=== PATIENT | male | born 1930 | race Caucasian/White ===

== ENCOUNTER 2017-01-12 16:49 | Emergency (ER) | payer MEDICARE ==
[2017-01-12 17:14] VITALS: TEMP 97.7
[2017-01-12] MEDS ORDERED: NITROGLYCERIN OINT 1 INCH/GM PACKET TOPICAL STA (17:33)
[2017-01-12] MEDS ORDERED: ASPIRIN 81 MG CHEW PO STA (17:33)
[2017-01-12 18:14] LABS: Basophils % (A) 0 %; CH 32.9; CHCM 35.1; Eosinophils # (A) 0.1 k/uL (0-0.7); Eosinophils % (A) 2 %; HCT 46.8 % (39.0-53.0); HDW 2.46; Luc # (Auto) 0.14; Luc % (Auto) 2; Lymphocytes # (A) 2.1 k/uL (1.0-4.8); Lymphocytes % (A) 30 %; MCH 32.1 pg (25.0-35.0); MCHC 34.1 g/dL (31.0-37.0); MCV 93.9 fL (80.0-100.0); Mean Platelet Volume 7.7; Monocytes # (A) 0.6 k/uL (0-1.0); Monocytes % (A) 8 %; Neutrophils # (A) 4.2 k/uL (1.3-7.7); Neutrophils % (A) 58 %; RBC 4.98 m/uL (4.30-5.90); RDW 13.5 % (11.5-15.5); WBC 7.2 k/uL (3.8-10.6); WBC (Perox) 6.84
--- NOTE | 2017-01-12 18:20 | XR ---
EXAMINATION TYPE: XR chest 2V DATE OF EXAM: 01/12/2017 COMPARISON: 05/09/2015 HISTORY: Right-sided chest pain TECHNIQUE: Frontal and lateral views of the chest are obtained. FINDINGS: Heart is normal. Lungs are clear. There is no heart failure. There is no pleural effusion. Thoracic aorta is atheromatous. There are chest leads. Bony thorax is intact. IMPRESSION: No active cardiac pulmonary disease. No change.
[2017-01-12 18:29] LABS: ALT 34 U/L (21-72); AST 23 U/L (17-59); Alkaline Phosphatase 71 U/L (38-126); Anion Gap 10 mmol/L; Blood Urea Nitrogen 15 mg/dL (9-20); Calcium 9.3 mg/dL (8.4-10.2); Carbon Dioxide 22 mmol/L (22-30); Chloride 105 mmol/L (98-107); Glucose 94 mg/dL (74-99); Magnesium 2.1 mg/dL (1.6-2.3); Non-African American GFR(MDRD) >60 (>60 ml/min/1.73 sqM); Potassium 4.3 mmol/L (3.5-5.1); Sodium 137 mmol/L (137-145); Total Bilirubin 1.4 mg/dL (0.2-1.3); Total Protein 7.2 g/dL (6.3-8.2)
[2017-01-12 18:30] LABS: Partial Thromboplastin Time 23.6 sec (22.0-30.0); Prothrombin Time 10.1 sec (9.0-12.0)
[2017-01-12 18:38] LABS: Creatine Kinase 83 U/L (55-170)
[2017-01-12 18:52] LABS: Creatine Kinase MB 0.8 ng/mL (0.0-2.4); Troponin I <0.012 ng/mL (0.000-0.034)
[2017-01-12 19:17] VITALS: BP 137/80; PULSE 64; RESP 18
--- NOTE | 2017-01-12 19:39 | ED ---
Chest Pain HPI - General Chief Complaint: Chest Pain Stated Complaint: chest pain,back pain Time Seen by Provider: 01/12/17 17:28 Source: patient Mode of arrival: wheelchair - History of Present Illness Initial Comments: This 86-year-old white male presents with son with the complaint of some bilateral lower back tightness. This is been a chronic problem for him. He states that he went to another and 2 days ago and was sitting in some bleachers and his back pain seemed to increase to a slight degree. The pain in his back seemed to radiate into his right lateral inferior ribs as well. He states that the pain would decrease when he took a deep breath. He denies any shortness of breath. He denies any leg pain or swelling. He states that there is no pain upon his evaluation in the emergency department. There is no history of previous cardiac or pulmonary disease. There is no history of DVT or PE. No other complaints or modifying factors. - Related Data Home Medications Medication Instructions Recorded Confirmed Ranitidine HCl [Zantac] 150 mg PO DAILY PRN 12/24/14 01/12/17 Aspirin EC [Ecotrin Low Dose] 81 mg PO QAM 01/12/17 01/12/17 Dicyclomine [Bentyl] 10 mg PO Q8H PRN 01/12/17 01/12/17 Ergocalciferol [Vitamin D2] 50,000 unit PO SA 01/12/17 01/12/17 Finasteride [Proscar] 5 mg PO DAILY 01/12/17 01/12/17 Lisinopril [Zestril] 10 mg PO QAM 01/12/17 01/12/17 Niacin 500 mg PO DAILY 01/12/17 01/12/17 Tamsulosin HCl [Flomax] 0.4 mg PO BID 01/12/17 01/12/17 Allergies Allergy/AdvReac Type Severity Reaction Status Date / Time Penicillins Allergy Rash/Hives Verified 01/12/17 18:31 codeine AdvReac Nausea & Verified 01/12/17 18:31 Vomiting Review of Systems ROS Statement: Those systems with pertinent positive or pertinent negative responses have been documented in the HPI. ROS Other: All systems not noted in ROS Statement are negative. Past Medical History Past Medical History: GERD/Reflux, Prostate Disorder, Skin Disorder Additional Past Medical History / Comment(s): IBS, chronic constipation, hx psoriasis History of Any Multi-Drug Resistant Organisms: None Reported Past Surgical History: Appendectomy, Cholecystectomy, Joint Replacement Additional Past Surgical History / Comment(s): piyush knee replacements, rt cataract Past Anesthesia/Blood Transfusion Reactions: No Reported Reaction Past Psychological History: No Psychological Hx Reported Smoking Status: Never smoker Past Alcohol Use History: None Reported Past Drug Use History: None Reported - Past Family History Mother Family Medical History: No Reported History General Exam - General Exam Comments Initial Comments: GENERAL: The patient is well nourished and well hydrated. VITAL SIGNS: Heart rate, blood pressure, respiratory rate reviewed as recorded in nurse's notes. EYES: Pupils are round and reactive. Extraocular movements are intact. No conjunctival / lid redness or swelling. ENT: No external evidence of injury, swelling, or ecchymosis. Airway is patent. Throat is clear. NECK: Nontender. No swelling or evidence of injury. No subcutaneous emphysema. Trachea is midline. No thyroid mass. HEART: Regular rate and rhythm. Good peripheral pulses. LUNGS/CHEST: Breath sounds clear and equal bilaterally. No rales, rhonchi, or wheezes. No ecchymosis, subcutaneous emphysema, or tenderness. ABDOMEN: Abdomen soft without tenderness. No palpable masses or organomegaly. No peritoneal signs. No abdominal wall swelling or ecchymosis. EXTREMITIES: No extremity tenderness. Normal muscle tone and function. No thoracolumbar tenderness. NEUROLOGIC: Sensation is grossly intact. Cranial nerve exam reveals face is symmetrical, tongue is midline, speech is clear. SKIN: No abrasions or ecchymosis is noted. No induration or masses noted. PSYCHIATRIC: Alert and oriented. Appropriate behavior and judgment. Course Vital Signs 01/12/17 01/12/17 17:06 19:16 Temperature 97.7 F Pulse Rate 74 64 Respiratory 19 18 Rate Blood Pressure 144/86 137/80 O2 Sat by Pulse 97 98 Oximetry Chest Pain MDM - MDM The patient was seen and examined. All diagnostics were reviewed. An EKG was done which shows a normal sinus rhythm with occasional immature ventricular complex. There is no acute ST or T wave changes noted. The MD interval is 206 , the QRS duration is 86, and the QTc interval is 439. The patient's checks x- ray did not show any acute processes. The laboratory including the cardiac enzymes and d-dimer are all essentially within normal limits. He did not have any pain upon evaluation and it did not recur. He appears quite well initially and on recheck. His pain seems to be very atypical for any cardiac disease but he has not had a stress test in many years. He is offered admission to the hospital for further Cardiologic workup. This is offered on several occasions but he refuses. He states that he would prefer to follow-up with his primary physician and have this scheduled. Return parameters are discussed. Risks and benefits of not being admitted and not having a cardiac workup were discussed in detail and he leaves in no distress. He does verbalize that he will follow- up with Dr. Leyva very shortly for evaluation of possible stress test. Disposition Clinical Impression: Atypical chest pain, Chronic back pain Disposition: HOME SELF-CARE Condition: Good Instructions: Chest Pain (ED), Chronic Back Pain (ED) Referrals: Deanne Leyva MD [Primary Care Provider] - 1-2 days Time of Disposition: 19:39
== END 2017-01-12 19:55 | disposition home or self-care (01) ==
LOC: EC 16:49
DX: G89.29 Other chronic pain (principal); M54.5 Low back pain; R07.89 Other chest pain; I49.3 Ventricular premature depolarization; N42.9 Disorder of prostate, unspecified; Z79.82 Long term (current) use of aspirin; Z79.899 Other long term (current) drug therapy; Z88.0 Allergy status to penicillin; Z88.5 Allergy status to narcotic agent
CPT/HCPCS: 36415; 71020; 80053; 82550; 82553; 83735; 84484; 85025; 85379; 85610; 85730; 93005; 99285

== ENCOUNTER → 2017-01-23 | Outpatient (CLI) | payer MEDICARE ==
--- NOTE | 2017-01-23 11:43 | P.STRESS ---
- Stress Test Note Stress Test Results/Findings: Exam Performed: NM stress cardiolite complete Exam Date: 01/23/17 Reason for Exam: CP Height: 5 ft 9 in Weight: 90.265 kg Protocol: VICKI CARDIOLITE Stage: I Duration of Exercise: 2:41 Resting Heart Rate: 78 Resting Blood Pressure: 146/85 Maximum Achieved Heart Rate: 141 Maximum Achieved Blood Pressure: 154/41 85% PMHR: 114 100% PMHR: 134 METS: 1.0 Technologist Comment: Stress Test Results/Findings: This is a 86-year-old gentleman being evaluated for symptoms of chest pain. Patient has hypertension and hypercholesterolemia. Baseline EKG showed sinus rhythm with normal QRS duration. Occasional PVCs were noted. Blood pressure at rest is 146/85 pulse rate of 78. Patient walked on the Vicki protocol for 2 minutes and 41 seconds achieving a maximal 141 with a blood pressure 130/52. EKGs taken during and after the exercise did not reveal any changes to suggest ischemia. Patient continued to have occasional PVCs. Patient did not experience any chest pain. Final impression: #1. Limited exercise capacity #2 negative stress test #3 report on the nuclear images to begin by the radiologist
--- NOTE | 2017-01-23 13:36 | NM ---
"EXAMINATION TYPE: NM stress cardiolite complete DATE OF EXAM: 01/23/2017 COMPARISON: 07/02/2009 HISTORY: Chest pain TECHNIQUE: After the intravenous administration of 10.5 mCi Tc 99m Sestamibi - Rest images obtained 65 minutes post injection. The patient exercised using a VICKI protocol and 1 minute prior to peak exercise was injected with 29.1 mCi Tc 99m Sestamibi - Stress images obtained 45 minutes post injecti on. FINDINGS: Targeted heart rate was achieved during performance of the study. Review of stress and rest SPECT yehuda ges demonstrates no reversible perfusion defect involving the inferior wall the myocardium.. Gated a nalysis shows an estimated left ventricular ejection fraction of 56 %. IMPRESSION: Correlate for stress-induced reversible ischemia inferior wall myocardium. A Yellow message has been communicated to Deanne Leyva MD via the [employer] | Critical Result s ystem on 01/23/2017 1:34 PM, Message ID [id number]."
== END ==
LOC: RADNMMAIN 08:35
PROVIDERS: ATTEND Internal Medicine
DX: R07.89 Other chest pain (principal)
CPT/HCPCS: 93017; 78452; A9500

== ENCOUNTER 2017-09-06 10:28 | Observation (INO) | payer MEDICARE ==
[2017-09-06] MEDS ORDERED: SODIUM CHLORIDE 0.9% 1,000 ML IV STA (11:04)
[2017-09-06] MEDS ORDERED: SODIUM CHLORIDE 0.9% 500 ML IV STA (11:04)
[2017-09-06 11:30] LABS: Basophils % (A) 0 %; Eosinophils # (A) 0.1 k/uL (0-0.7); Eosinophils % (A) 2 %; HCT 42.7 % (39.0-53.0); HGB 14.5 gm/dL (13.0-17.5); Lymphocytes # (A) 1.8 k/uL (1.0-4.8); Lymphocytes % (A) 27 %; MCV 91.4 fL (80.0-100.0); Mean Platelet Volume 7.4; Monocytes # (A) 0.5 k/uL (0-1.0); Monocytes % (A) 7 %; Neutrophils # (A) 4.2 k/uL (1.3-7.7); Neutrophils % (A) 63 %; Platelet Count 233 k/uL (150-450); RBC 4.67 m/uL (4.30-5.90); RDW 12.6 % (11.5-15.5); WBC 6.8 k/uL (3.8-10.6)
[2017-09-06 11:33] LABS: Albumin 3.8 g/dL (3.5-5.0); Calcium 9.5 mg/dL (8.4-10.2); Magnesium 2.1 mg/dL (1.6-2.3); Potassium 4.3 mmol/L (3.5-5.1); Total Bilirubin 1.8 mg/dL (0.2-1.3); Total Protein 6.5 g/dL (6.3-8.2)
--- NOTE | 2017-09-06 11:42 | XR ---
EXAMINATION TYPE: XR chest 2V DATE OF EXAM: 09/06/2017 COMPARISON: Prior chest x-ray 01/12/2017 HISTORY: Chest pain TECHNIQUE: Frontal and lateral views of the chest are obtained. FINDINGS: There are overlying cardiac leads. Patient is rotated. No evident airspace disease, pneumo thorax, or pleural effusion. Cardiac mediastinal silhouette, pulmonary vascularity and radha are stabl e. Prominent lung volumes suggest underlying COPD. IMPRESSION: No acute cardiopulmonary process.
[2017-09-06 11:50] LABS: INR 1.1 (<1.2); Partial Thromboplastin Time 23.6 sec (22.0-30.0); Prothrombin Time 10.4 sec (9.0-12.0)
[2017-09-06 11:52] LABS: Creatine Kinase 52 U/L (55-170)
--- NOTE | 2017-09-06 11:52 | ED ---
General Adult HPI - General Chief complaint: Chest Pain Stated complaint: Jaw Pain/Chest Tightness Time Seen by Provider: 09/06/17 10:48 Source: patient, RN notes reviewed, old records reviewed Mode of arrival: ambulatory Limitations: no limitations - History of Present Illness Initial comments: This patient's an 87-year-old male with cardiac history presents emergency department today with intermittent left-sided jaw pain and ear pain. He reports he size primary care provider and they started him on antibiotics for an ear infection. He states that he has no drainage from his ear and denies any decreased hearing. He reports he is concerned because this seems to keep reoccurring despite taking his antibiotics. Patient relates that he's had intermittent chest pain, denies shortness of breath this time. He also reports he has a history of IBS and wonders if his IBS is acting up causing the symptoms. Patient states that he has had no blood in his stools or any significant changes in his bowel movements as of lately. No vomiting. He occasionally does feel nauseated. He reports that he is no lightheadedness or dizziness. Patient had a stent placed in the RCA on 02/13/2017. is maintained on clopidogrel, and takes atorvastatin. He did take his medications today. - Related Data Home Medications Medication Instructions Recorded Confirmed Ranitidine HCl [Zantac] 150 mg PO DAILY PRN 12/24/14 09/06/17 Aspirin EC [Ecotrin Low Dose] 81 mg PO QAM 01/12/17 09/06/17 Dicyclomine [Bentyl] 10 mg PO Q8H PRN 01/12/17 09/06/17 Finasteride [Proscar] 5 mg PO DAILY 01/12/17 09/06/17 Tamsulosin HCl [Flomax] 0.4 mg PO BID 01/12/17 09/06/17 Lubiprostone [Amitiza] 24 mcg PO DAILY PRN 02/06/17 09/06/17 Atorvastatin [Lipitor] 20 mg PO HS 09/06/17 09/06/17 Clindamycin HCl [Cleocin] 150 mg PO TID 09/06/17 09/06/17 Lisinopril [Zestril] 5 mg PO DAILY 09/06/17 09/06/17 Previous Rx's Medication Instructions Recorded Clopidogrel [Plavix] 75 mg PO DAILY #90 tab 02/14/17 Metoprolol Tartrate [Lopressor] 25 mg PO BID #180 tab 02/14/17 Nitroglycerin Sl Tabs [Nitrostat] 0.4 mg SUBLINGUAL Q5M PRN #25 tab 02/14/17 Allergies Allergy/AdvReac Type Severity Reaction Status Date / Time Penicillins Allergy Rash/Hives Verified 09/06/17 10:50 codeine AdvReac Nausea & Verified 09/06/17 10:50 Vomiting Review of Systems ROS Statement: Those systems with pertinent positive or pertinent negative responses have been documented in the HPI. ROS Other: All systems not noted in ROS Statement are negative. Past Medical History Past Medical History: GERD/Reflux, Hyperlipidemia, Hypertension, Prostate Disorder, Skin Disorder Additional Past Medical History / Comment(s): IBS, chronic constipation, hx psoriasis History of Any Multi-Drug Resistant Organisms: None Reported Past Surgical History: Appendectomy, Cholecystectomy, Heart Catheterization With Stent, Joint Replacement Additional Past Surgical History / Comment(s): piyush knee replacements, rt cataract Past Anesthesia/Blood Transfusion Reactions: No Reported Reaction Past Psychological History: No Psychological Hx Reported Smoking Status: Never smoker Past Alcohol Use History: None Reported Past Drug Use History: None Reported - Past Family History Mother Family Medical History: No Reported History General Exam - General Exam Comments Initial Comments: Pleasant 87-year-old male. No distress. Limitations: no limitations General appearance: alert, in no apparent distress Head exam: Present: atraumatic, normocephalic, normal inspection Eye exam: Present: normal appearance, PERRL, EOMI. Absent: scleral icterus, conjunctival injection, periorbital swelling ENT exam: Present: normal exam, mucous membranes moist, TM's normal bilaterally , normal external ear exam Neck exam: Present: normal inspection. Absent: tenderness, meningismus, lymphadenopathy Respiratory exam: Present: normal lung sounds bilaterally. Absent: respiratory distress, wheezes, rales, rhonchi, stridor Cardiovascular Exam: Present: regular rate, normal rhythm, normal heart sounds. Absent: systolic murmur, diastolic murmur, rubs, gallop, clicks GI/Abdominal exam: Present: soft, normal bowel sounds. Absent: distended, tenderness, guarding, rebound, rigid Extremities exam: Present: normal inspection, full ROM, normal capillary refill. Absent: tenderness, pedal edema, joint swelling, calf tenderness Back exam: Present: normal inspection Neurological exam: Present: alert, oriented X3, CN II-XII intact Course Vital Signs 09/06/17 09/06/17 09/06/17 10:32 12:21 13:24 Temperature 97.4 F L Pulse Rate 63 91 65 Respiratory 18 18 18 Rate Blood Pressure 172/79 147/64 172/84 O2 Sat by Pulse 98 98 96 Oximetry EKG Findings - EKG Comments: EKG Findings:: EKG performed at 1044 shows sinus rhythm with first-degree AV block. Inferior infarct age undetermined. Abnormal EKG noted. Ventricular rate of 60 bpm. RI interval 234 ms. QRS duration 80 ms. QT QTC 396 ms. Medical Decision Making - Medical Decision Making 87-year-old male presents emergency Department with intermittent chest pain and left jaw pain lip pain. He reports that he's had history of GERD RCA stent in January 2017. At this time patient's cardiac was reviewed and negative for any abnormality's. EKG shows no acute changes. I reviewed patient's age and description of symptoms we will keep the patient for observation for repeat cardiac enzymes. Patient family informed of this. They agreed to the admission. Case discussed with Dr. Merrill who discussed the case with Dr. Leyva. [place] the patient and repeat cardiac enzyme. - Lab Data Result diagrams: 09/06/17 11:08 09/06/17 11:08 Lab Results 09/06/17 09/06/17 09/06/17 Range/Units 11:08 11:08 11:08 WBC 6.8 (3.8-10.6) k/uL RBC 4.67 (4.30-5.90) m/uL Hgb 14.5 (13.0-17.5) gm/dL Hct 42.7 (39.0-53.0) % MCV 91.4 (80.0-100.0) fL MCH 31.0 (25.0-35.0) pg MCHC 34.0 (31.0-37.0) g/dL RDW 12.6 (11.5-15.5) % Plt Count 233 (150-450) k/uL Neutrophils % 63 % Lymphocytes % 27 % Monocytes % 7 % Eosinophils % 2 % Basophils % 0 % Neutrophils # 4.2 (1.3-7.7) k/uL Lymphocytes # 1.8 (1.0-4.8) k/uL Monocytes # 0.5 (0-1.0) k/uL Eosinophils # 0.1 (0-0.7) k/uL Basophils # 0.0 (0-0.2) k/uL PT (9.0-12.0) sec INR (<1.2) APTT (22.0-30.0) sec Sodium 138 (137-145) mmol/L Potassium 4.3 (3.5-5.1) mmol/L Chloride 103 (98-107) mmol/L Carbon Dioxide 25 (22-30) mmol/L Anion Gap 10 mmol/L BUN 14 (9-20) mg/dL Creatinine 0.92 (0.66-1.25) mg/dL Est GFR (CKD-EPI)AfAm 86 (>60 ml/min/1.73 sqM) Est GFR (CKD-EPI)NonAf 75 (>60 ml/min/1.73 sqM) Glucose 102 H (74-99) mg/dL Calcium 9.5 (8.4-10.2) mg/dL Magnesium 2.1 (1.6-2.3) mg/dL Total Bilirubin 1.8 H (0.2-1.3) mg/dL AST 23 (17-59) U/L ALT 28 (21-72) U/L Alkaline Phosphatase 63 (38-126) U/L Total Creatine Kinase 52 L (55-170) U/L CK-MB (CK-2) 0.4 (0.0-2.4) ng/mL CK-MB (CK-2) Rel Index 0.8 Troponin I <0.012 (0.000-0.034) ng/mL NT-Pro-B Natriuret Pep pg/mL Total Protein 6.5 (6.3-8.2) g/dL Albumin 3.8 (3.5-5.0) g/dL Amylase 38 (30-110) U/L Lipase 65 (23-300) U/L 09/06/17 09/06/17 Range/Units 11:08 11:08 WBC (3.8-10.6) k/uL RBC (4.30-5.90) m/uL Hgb (13.0-17.5) gm/dL Hct (39.0-53.0) % MCV (80.0-100.0) fL MCH (25.0-35.0) pg MCHC (31.0-37.0) g/dL RDW (11.5-15.5) % Plt Count (150-450) k/uL Neutrophils % % Lymphocytes % % Monocytes % % Eosinophils % % Basophils % % Neutrophils # (1.3-7.7) k/uL Lymphocytes # (1.0-4.8) k/uL Monocytes # (0-1.0) k/uL Eosinophils # (0-0.7) k/uL Basophils # (0-0.2) k/uL PT 10.4 (9.0-12.0) sec INR 1.1 (<1.2) APTT 23.6 (22.0-30.0) sec Sodium (137-145) mmol/L Potassium (3.5-5.1) mmol/L Chloride (98-107) mmol/L Carbon Dioxide (22-30) mmol/L Anion Gap mmol/L BUN (9-20) mg/dL Creatinine (0.66-1.25) mg/dL Est GFR (CKD-EPI)AfAm (>60 ml/min/1.73 sqM) Est GFR (CKD-EPI)NonAf (>60 ml/min/1.73 sqM) Glucose (74-99) mg/dL Calcium (8.4-10.2) mg/dL Magnesium (1.6-2.3) mg/dL Total Bilirubin (0.2-1.3) mg/dL AST (17-59) U/L ALT (21-72) U/L Alkaline Phosphatase (38-126) U/L Total Creatine Kinase (55-170) U/L CK-MB (CK-2) (0.0-2.4) ng/mL CK-MB (CK-2) Rel Index Troponin I (0.000-0.034) ng/mL NT-Pro-B Natriuret Pep 53 pg/mL Total Protein (6.3-8.2) g/dL Albumin (3.5-5.0) g/dL Amylase (30-110) U/L Lipase (23-300) U/L - Radiology Data Radiology results: report reviewed Chest x-rays reviewed and negative for any acute process. Disposition Clinical Impression: Intermittent chest pain Disposition: ADMITTED IP TO THIS HOSP Condition: Stable Instructions: Chest Pain (ED) Referrals: Deanne Leyva MD [Primary Care Provider] - 1-2 days Time of Disposition: 13:30
[2017-09-06 12:04] LABS: Creatine Kinase MB 0.4 ng/mL (0.0-2.4); Troponin I <0.012 ng/mL (0.000-0.034)
[2017-09-06] MEDS ORDERED: NALOXONE 0.4 MG/ML 1 ML VIAL IV PRN (13:31)
[2017-09-06] MEDS ORDERED: IBUPROFEN 400 MG TAB PO PRN (13:31)
[2017-09-06] MEDS ORDERED: Acetaminophen-Codeine 300-30mg TAB PO PRN (13:31)
[2017-09-06] MEDS ORDERED: ONDANSETRON 4 MG/2 ML VIAL IVP PRN (13:31)
[2017-09-06] MEDS ORDERED: ACETAMINOPHEN TAB 325 MG TAB PO PRN (13:31)
[2017-09-06] MEDS ORDERED: SODIUM CHLORIDE 0.9% 1,000 ML IV SCH (13:45)
[2017-09-06] MEDS ORDERED: ASPIRIN 325 MG TAB PO STA (13:50)
[2017-09-06] MEDS ORDERED: AMITIZA 24 MCG PO PRN (17:11)
[2017-09-06] MEDS ORDERED: FAMOTIDINE 20 MG TAB PO PRN (17:11)
[2017-09-06] MEDS ORDERED: DICYCLOMINE 10 MG CAP PO PRN (17:11)
[2017-09-06] MEDS ORDERED: NITROGLYCERIN SL TABS 0.4 MG TAB SUBLINGUAL PRN (17:11)
--- NOTE | 2017-09-06 17:11 | P.HPIM ---
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 Patient has a known history of coronary artery disease he had a stress test which was abnormal in January 2017 subsequently he had cardiac catheterization with angioplasty and stent placement by Dr. Snlel, he did not have any cardiac symptoms since then. Patient started having intermittent episodes of jaw pain and chest pain less than 24 hours ago he decided to come to emergency room this morning, he denies any fever or chills he denies pain in any of his teeth he feels normal between episodes of pain there is no headache no dizziness no diaphoresis no shortness of breath no cough no nausea or vomiting no abdominal pain and no urinary symptoms. 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 History of Any Multi-Drug Resistant Organisms: None Reported Past Surgical History: Appendectomy, Cholecystectomy, Heart Catheterization With Stent, Joint Replacement Additional Past Surgical History / Comment(s): 02/13/17 PCI with stent RCA, piyush knee replacements, colonoscopies, rt cataract Past Anesthesia/Blood Transfusion Reactions: No Reported Reaction Date of Last Stent Placement:: 02/13/17 Smoking Status: Never smoker - Past Family History Father Family Medical History: Coronary Artery Disease (CAD), Myocardial Infarction (ME ) Additional Family Medical History / Comment(s): Father of a ME at the age of 68yrs. Mother Family Medical History: Coronary Artery Disease (CAD), Myocardial Infarction (ME ) Additional Family Medical History / Comment(s): Mother of a ME at the age of 91 yrs. Medications and Allergies Home Medications Medication Instructions Recorded Confirmed Type Ranitidine HCl [Zantac] 150 mg PO DAILY PRN 12/24/14 09/06/17 History Aspirin EC [Ecotrin Low Dose] 81 mg PO QAM 01/12/17 09/06/17 History Dicyclomine [Bentyl] 10 mg PO Q8H PRN 01/12/17 09/06/17 History Finasteride [Proscar] 5 mg PO DAILY 01/12/17 09/06/17 History Tamsulosin HCl [Flomax] 0.4 mg PO BID 01/12/17 09/06/17 History Lubiprostone [Amitiza] 24 mcg PO DAILY PRN 02/06/17 09/06/17 History Clopidogrel [Plavix] 75 mg PO DAILY #90 tab 02/14/17 09/06/17 Rx Metoprolol Tartrate [Lopressor] 25 mg PO BID #180 tab 02/14/17 09/06/17 Rx Nitroglycerin Sl Tabs [Nitrostat] 0.4 mg SUBLINGUAL Q5M PRN #25 tab 02/14/1704/15 Rx Atorvastatin [Lipitor] 20 mg PO HS 09/06/17 09/06/17 History Clindamycin HCl [Cleocin] 150 mg PO TID 09/06/17 09/06/17 History Lisinopril [Zestril] 5 mg PO DAILY 09/06/17 09/06/17 History Allergies Allergy/AdvReac Type Severity Reaction Status Date / Time Penicillins Allergy Rash/Hives Verified 09/06/17 10:50 codeine AdvReac Nausea & Verified 09/06/17 10:50 Vomiting Physical Exam Vitals: Vital Signs Temp Pulse Resp BP Pulse Ox 09/06/17 15:55 83 18 127/68 09/06/17 13:24 65 18 172/84 96 09/06/17 12:21 91 18 147/64 98 09/06/17 10:32 97.4 F L 63 18 172/79 98 Intake and Output 09/06/17 09/06/17 09/06/17 06:59 14:59 22:59 Other: Weight 90.265 kg In general patient is alert and oriented 3 in no apparent distress HEENT head normocephalic and atraumatic Neck is supple no JVD no goiter no lymphadenopathy Chest exam reveals a few scattered crackles bilaterally no wheezing Cardiac exam reveals regular heart sounds S1 and S2 no gallops no murmurs Abdomen is soft nontender no organomegaly was normal bowel sounds Extremity exam reveals no edema no cyanosis Results CBC & Chem 7: 09/06/17 11:08 09/06/17 11:08 Labs: Abnormal Lab Results - Last 24 Hours (Table) 09/06/17 09/06/17 Range/Units 11:08 11:08 Glucose 102 H (74-99) mg/dL Total Bilirubin 1.8 H (0.2-1.3) mg/dL Total Creatine Kinase 52 L (55-170) U/L Thrombosis Risk Factor Assmnt - Choose All That Apply Any of the Below Risk Factors Present?: Yes Each Factor Represents 1 point: Hx of IBD, Obesity (BMI >25) Other Risk Factors: Yes Each Risk Factor Represents 3 Points: Age 75 years or older Other congenital or acquired thrombophilia - If yes, enter type in comment: No Thrombosis Risk Factor Assessment Total Risk Factor Score: 5 Thrombosis Risk Factor Assessment Level: High Risk Assessment and Plan Assessment: #1 intermittent episodes of chest pain and jaw pain #2 underlying history of coronary artery disease with angioplasty and stent placement in January 2017 #3 underlying history of hypertension #4 underlying history of hyperlipidemia maintained on Lipitor #5 underlying history of benign prostatic hypertrophy At this time patient was seen and examined medication reviewed and reordered lab EKG and chest x-ray were reviewed Continue to monitor for 24 hours with check 3 sets of cardiac enzymes cardiology consultation has been requested will follow closely
[2017-09-06 18:04] LABS: Creatine Kinase 52 U/L (55-170)
[2017-09-06 18:16] LABS: Creatine Kinase MB 0.4 ng/mL (0.0-2.4); Troponin I <0.012 ng/mL (0.000-0.034)
[2017-09-06] MEDS ORDERED: ATORVASTATIN 20 MG TAB PO SCH (21:00)
[2017-09-06] MEDS: TAMSULOSIN 0.4 MG CAP.ER.24H PO SCH (21:48)
[2017-09-06] MEDS: METOPROLOL TARTRATE 25 MG TAB PO SCH (21:48)
[2017-09-06] MEDS ORDERED: FINASTERIDE 5 MG TAB PO SCH (22:00)
[2017-09-07 00:16] LABS: Creatine Kinase 64 U/L (55-170)
[2017-09-07 00:30] LABS: Creatine Kinase MB 0.6 ng/mL (0.0-2.4); Troponin I <0.012 ng/mL (0.000-0.034)
[2017-09-07 06:42] LABS: Basophils % (A) 0 %; Eosinophils # (A) 0.1 k/uL (0-0.7); Eosinophils % (A) 2 %; HCT 40.5 % (39.0-53.0); HGB 14.1 gm/dL (13.0-17.5); Lymphocytes # (A) 2.3 k/uL (1.0-4.8); Lymphocytes % (A) 32 %; MCH 31.3 pg (25.0-35.0); MCHC 34.8 g/dL (31.0-37.0); MCV 89.9 fL (80.0-100.0); Mean Platelet Volume 6.9; Monocytes # (A) 0.6 k/uL (0-1.0); Monocytes % (A) 8 %; Neutrophils # (A) 4.1 k/uL (1.3-7.7); Neutrophils % (A) 57 %; Platelet Count 226 k/uL (150-450); RDW 12.5 % (11.5-15.5); WBC 7.3 k/uL (3.8-10.6)
[2017-09-07 07:11] LABS: Albumin 3.5 g/dL (3.5-5.0); Calcium 9.3 mg/dL (8.4-10.2); Potassium 4.4 mmol/L (3.5-5.1); Total Bilirubin 2.4 mg/dL (0.2-1.3); Total Protein 6.2 g/dL (6.3-8.2)
[2017-09-07 08:20] VITALS: RESP 18
[2017-09-07] MEDS ORDERED: ASPIRIN 81 MG PO SCH (09:00)
[2017-09-07] MEDS ORDERED: PANTOPRAZOLE 40 MG/10 ML VIAL IV SCH (09:00)
[2017-09-07] MEDS ORDERED: FINASTERIDE 5 MG TAB PO SCH (09:00)
[2017-09-07] MEDS ORDERED: LISINOPRIL 5 MG TAB PO SCH (09:00)
[2017-09-07] MEDS ORDERED: CLOPIDOGREL 75 MG TAB PO SCH (09:00)
[2017-09-07] MEDS: METOPROLOL TARTRATE 25 MG TAB PO SCH (11:11)
[2017-09-07] MEDS: TAMSULOSIN 0.4 MG CAP.ER.24H PO SCH (11:11)
[2017-09-07 12:05] VITALS: BP 146/88; PULSE 78; TEMP 97.5
--- NOTE | 2017-09-07 13:03 | P.CRDCN ---
History of Present Illness Consult date: 09/07/17 History of present illness: Mr. Álvarez is a pleasant 87-year-old male past medical history significant for coronary artery disease with recent stenting 01/2017, dyslipidemia, hypertension, gastroesophageal reflux disease and diverticulitis. He follows with Dr. Snell in the office. We have been asked to see him in consultation for symptoms of chest pain. He states yesterday he started feeling some pain in his jaw. The pain was constant and persistent so he became alarmed that there may be some cardiac involvement. He denies every having chest pain, shortness of breath, dizziness, palpitations, nausea, vomiting or diaphoresis. He realized later in the evening that the pain was made worse when he was eating , chewing and pressing on his left upper gum line. He does have poor dentition on exam. Telemetry tracings have been unremarkable and EKG shows no signs of ischemia. EKG is sinus mechanism with first degree AV block and non-specific ST abnormalities. Chest x-ray is negative for acute cardiopulmonary process. Laboratory data reviewed, hemoglobin 14.1, platelets 226, sodium 139, potassium 4.4, magnesium 2.1, cardiac enzymes negative 3. Current cardiac medications include atorvastatin 20 mg daily, Lopressor 25 mg twice a day, lisinopril 5 mg daily, clopidogrel 75 mg daily and aspirin 81 mg daily. Most recent cardiac catheterization performed January 2017 HEENT revealed disease in the ostial RCA which was stented at that time he also had mild disease in the LAD 20-30%. Review of Systems At the time my exam: CONSTITUTIONAL: Denies fever. Denies chills. EYES: Denies blurred vision. Denies vision changes. Denies eye pain. EARS, NOSE, MOUTH & THROAT: Denies headache. Denies sore throat. Denies ear pain. Complains of intermittent dental pain CARDIOVASCULAR: Denies chest pain. Denies shortness of breath. Denies orthopnea. Denies PND. Denies palpitations. RESPIRATORY: Denies cough. GASTROINTESTINAL: Denies abdominal pain. Denies diarrhea. Denies constipation. Denies nausea. Denies vomiting. MUSCULOSKELETAL: Denies myalgias. INTEGUMENTARY: Denies pruitis. Denies rash. NEUROLOGIC: Denies numbness. Denies tingling. Denies weakness. PSYCHIATRIC: Denies anxiety. Denies depression. ENDOCRINE: Denies fatigue. Denies weight change. Denies polydipsia. Denies polyurina. GENITOURINARY: Denies burning, hematuria or urgency with micturation. HEMATOLOGIC: Denies history of anemia. Denies bleeding. 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 History of Any Multi-Drug Resistant Organisms: None Reported Past Surgical History: Appendectomy, Cholecystectomy, Heart Catheterization With Stent, Joint Replacement Additional Past Surgical History / Comment(s): 02/13/17 PCI with stent RCA, piyush knee replacements, colonoscopies, rt cataract Past Anesthesia/Blood Transfusion Reactions: No Reported Reaction Date of Last Stent Placement:: 02/13/17 Smoking Status: Never smoker - Past Family History Father Family Medical History: Coronary Artery Disease (CAD), Myocardial Infarction ([place] ) Additional Family Medical History / Comment(s): Father of a [place] at the age of 68yrs. Mother Family Medical History: Coronary Artery Disease (CAD), Myocardial Infarction ([place] ) Additional Family Medical History / Comment(s): Mother of a [place] at the age of 91 yrs. Medications and Allergies Home Medications Medication Instructions Recorded Confirmed Type Ranitidine HCl [Zantac] 150 mg PO DAILY PRN 12/24/14 09/06/17 History Aspirin EC [Ecotrin Low Dose] 81 mg PO QAM 01/12/17 09/06/17 History Dicyclomine [Bentyl] 10 mg PO Q8H PRN 01/12/17 09/06/17 History Finasteride [Proscar] 5 mg PO DAILY 01/12/17 09/06/17 History Tamsulosin HCl [Flomax] 0.4 mg PO BID 01/12/17 09/06/17 History Lubiprostone [Amitiza] 24 mcg PO DAILY PRN 02/06/17 09/06/17 History Clopidogrel [Plavix] 75 mg PO DAILY #90 tab 02/14/17 09/06/17 Rx Metoprolol Tartrate [Lopressor] 25 mg PO BID #180 tab 02/14/17 09/06/17 Rx Nitroglycerin Sl Tabs [Nitrostat] 0.4 mg SUBLINGUAL Q5M PRN #25 tab 02/14/1704/15 Rx Atorvastatin [Lipitor] 20 mg PO HS 09/06/17 09/06/17 History Clindamycin HCl [Cleocin] 150 mg PO TID 09/06/17 09/06/17 History Lisinopril [Zestril] 5 mg PO DAILY 09/06/17 09/06/17 History Allergies Allergy/AdvReac Type Severity Reaction Status Date / Time Penicillins Allergy Rash/Hives Verified 09/06/17 10:50 codeine AdvReac Nausea & Verified 09/06/17 10:50 Vomiting Physical Exam Vitals: Vital Signs Temp Pulse Pulse Resp BP BP Pulse Ox 09/07/17 12:00 78 18 09/07/17 11:30 97.5 F L 78 18 146/88 95 09/07/17 08:00 73 18 09/07/17 07:45 98.3 F 73 18 148/76 94 L 09/07/17 04:00 97.6 F 70 16 109/73 94 L 09/07/17 00:00 75 16 09/06/17 23:44 97.7 F 71 16 122/71 95 09/06/17 20:00 97.8 F 84 16 115/74 96 09/06/17 18:42 83 16 09/06/17 18:26 97.6 F 83 16 161/95 97 09/06/17 17:50 98.4 F 66 18 156/95 96 09/06/17 15:55 83 18 127/68 09/06/17 13:24 65 18 172/84 96 Intake and Output 09/06/17 09/07/17 09/07/17 22:59 06:59 14:59 Other: Voiding Method Toilet Toilet Toilet # Voids 1 Weight 91.8 kg Blood pressure 140/76 heart rate 73 afebrile maintaining oxygen saturation on room air GENERAL: This is a 87-year-old male in no apparent distress at the time of my examination. HEENT: Head is atraumatic, normocephalic. Pupils are equal, round. Sclerae anicteric. Conjunctivae are clear. Mucous membranes of the mouth are moist. Neck is supple. There is no jugular venous distention. No carotid bruit is heard. LUNGS: Clear to auscultation no wheezes, rales or rhonchi. No chest wall tenderness is noted on palpation or with deep breathing. HEART: Regular rate and rhythm without murmurs, rubs or gallops. S1 and S2 heard. ABDOMEN: Soft, nontender. Bowel sounds are heard. No organomegaly noted. EXTREMITIES: No evidence of peripheral edema and no calf tenderness noted. VASCULAR: Radial and dorsalis pedis pulses palpated, no evidence of clubbing. NEUROLOGIC: Patient is awake, alert and oriented x3. Results 09/07/17 06:16 09/07/17 06:16 Cardiac Enzymes 09/06/17 09/06/17 09/07/17 Range/Units 17:30 23:20 06:16 AST 22 (17-59) U/L CK-MB (CK-2) 0.4 0.6 (0.0-2.4) ng/mL Troponin I <0.012 <0.012 (0.000-0.034) ng/mL CBC 09/07/17 Range/Units 06:16 WBC 7.3 (3.8-10.6) k/uL RBC 4.50 (4.30-5.90) m/uL Hgb 14.1 (13.0-17.5) gm/dL Hct 40.5 (39.0-53.0) % Plt Count 226 (150-450) k/uL Comprehensive Metabolic Panel 09/07/17 Range/Units 06:16 Sodium 139 (137-145) mmol/L Potassium 4.4 (3.5-5.1) mmol/L Chloride 105 (98-107) mmol/L Carbon Dioxide 24 (22-30) mmol/L BUN 13 (9-20) mg/dL Creatinine 0.92 (0.66-1.25) mg/dL Glucose 94 (74-99) mg/dL Calcium 9.3 (8.4-10.2) mg/dL AST 22 (17-59) U/L ALT 26 (21-72) U/L Alkaline Phosphatase 64 (38-126) U/L Total Protein 6.2 L (6.3-8.2) g/dL Albumin 3.5 (3.5-5.0) g/dL Current Medications Generic Name Dose Route Start Last Admin Trade Name Freq PRN Reason Stop Dose Admin Acetaminophen 650 mg 09/06/17 13:31 Tylenol Tab PO Q6HR PRN Mild Pain or Fever > 100.5 Acetaminophen/Codeine Phosphate 1 each 09/06/17 13:31 Tylenol #3 PO Q4HR PRN Moderate Pain Aspirin 81 mg 09/07/17 09:00 09/07/17 11:11 Aspirin PO 81 mg QAM JOSUE Administration Atorvastatin Calcium 20 mg 09/06/17 21:00 09/06/17 21:48 Lipitor PO 20 mg HS JOSUE Administration Clopidogrel Bisulfate 75 mg 09/07/17 09:00 09/07/17 11:11 Plavix PO 75 mg DAILY [facility] Administration Dicyclomine HCl 10 mg 09/06/17 17:11 Bentyl PO Q8H PRN GI Upset Famotidine 20 mg 09/06/17 17:11 Pepcid PO DAILY PRN Heartburn Finasteride 5 mg 09/06/17 22:00 09/06/17 23:08 Proscar PO 5 mg HS [facility] Administration Sodium Chloride 1,000 mls @ 20 mls/hr 09/06/17 13:45 09/06/17 15:55 Saline 0.9% IV Not Given .Q24H [facility] Ibuprofen 400 mg 09/06/17 13:31 Motrin PO Q6HR PRN Mild Pain or Fever > 100.5 Lisinopril 5 mg 09/07/17 09:00 09/07/17 11:12 Zestril PO 5 mg DAILY [facility] Administration Metoprolol Tartrate 25 mg 09/06/17 21:00 09/07/17 11:11 Lopressor PO 25 mg BID [facility] Administration Naloxone HCl 0.2 mg 09/06/17 13:31 Narcan IV Q2M PRN Opioid Reversal Nitroglycerin 0.4 mg 09/06/17 17:11 Nitrostat SUBLINGUAL Q5M PRN Chest Pain Amitiza ( 24 mcg 09/06/17 17:11 Lubiprostone) 24 Mcg PO DAILY PRN Constipation Ondansetron HCl 4 mg 09/06/17 13:31 Zofran IVP Q8HR PRN Nausea And Vomiting Pantoprazole Sodium 40 mg 09/07/17 09:00 09/07/17 11:12 Protonix IV 40 mg DAILY JOSUE Administration Tamsulosin HCl 0.4 mg 09/06/17 21:00 09/07/17 11:11 Flomax PO 0.4 mg BID JOSUE Administration Intake and Output 09/06/17 09/07/17 09/07/17 22:59 06:59 14:59 Other: Voiding Method Toilet Toilet Toilet # Voids 1 Weight 91.8 kg 09/07/17 06:16 09/07/17 06:16 Assessment and Plan Assessment: ASSESSMENT 1. Dental pain with no complaints of chest pain. An acute coronary event has been ruled out with negative cardiac enzymes and no EKG evidence of ischemia. 2. History of coronary artery disease with recent stent placed to RCA in January 2017, continue with aspirin and plavix 3. Hypertension, continue with lisinopril and lopressor 4. Dyslipidemia, continue with atorvastatin PLAN From a cardiac perspective he is stable. Follow up with Dr. Snell at regularly scheduled appointment. Thank you kindly for this consultation. Nurse Practitioner note has been reviewed, I agree with a documented findings and plan of care. Patient was seen and examined.
--- NOTE | 2017-09-07 14:24 | P.DS ---
Providers Date of admission: 09/06/17 13:14 Expected date of discharge: 09/07/17 Attending physician: Deanne Leyva Consults: 09/06/17 17:49 Consult Physician Stat Consulting Provider: Loretta Snell Consult Reason/Comments: atypical chest pain Do you want consulting provider notified?: Yes Primary care physician: Deanne Autumn [place] Hospital Course: Discharge diagnosis #1 intermittent episodes of chest pain and jaw pain: Now resolved. VA ruled out. Troponins negative 3 sets. EKG showing no acute changes. Patient seen evaluated by cardiology and cleared him for discharge. Patient will follow-up with Dr. Snell at scheduled appointment. Patient's symptoms are likely related to his dental pain. Patient will be placed on clindamycin 150 mg 3 times a day for 7 days and it is recommended that he follows up with his dentist as soon as possible #2 underlying history of coronary artery disease with angioplasty and stent placement in January 2017 #3 underlying history of hypertension #4 underlying history of hyperlipidemia maintained on Lipitor #5 underlying history of benign prostatic hypertrophy Hospital course Bebo Álvarez is an 87-year-old male well-known to my practice who presented to [facility] emergency room with a chief complaint of intermittent episodes of jaw pain and chest pain, patient was evaluated in the emergency room his EKG revealed evidence of 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 Patient has a known history of coronary artery disease he had a stress test which was abnormal in January 2017 subsequently he had cardiac catheterization with angioplasty and stent placement by Dr. Snell, he did not have any cardiac symptoms since then. Patient started having intermittent episodes of jaw pain and chest pain less than 24 hours ago he decided to come to emergency room this morning, he denies any fever or chills he denies pain in any of his teeth he feels normal between episodes of pain there is no headache no dizziness no diaphoresis no shortness of breath no cough no nausea or vomiting no abdominal pain and no urinary symptoms. Patient's symptoms appear to be more of a dental pain along the left upper lip. He is not complaining of any chest pain. Cardiac workup is negative. Troponins negative 3 sets EKG showing no acute changes. He's been seen evaluated by cardiology and they've cleared him for discharge. Patient will follow-up with cardiology as scheduled and it is recommended that he follows up with his dentist as soon as possible. He will be given a prescription for clindamycin. I performed an examination of the patient and discussed their management with the physician [facility]. I have reviewed the Physician [facility]'s notes and agree with the documented findings and plan of care Patient Condition at Discharge: Stable Plan - Discharge Summary Discharge Rx Participant: No New Discharge Prescriptions: New Clindamycin [Cleocin] 150 mg PO TID #21 capsule Continue Ranitidine HCl [Zantac] 150 mg PO DAILY PRN PRN Reason: Heartburn Dicyclomine [Bentyl] 10 mg PO Q8H PRN PRN Reason: Gi Upset Finasteride [Proscar] 5 mg PO DAILY Aspirin EC [Ecotrin Low Dose] 81 mg PO QAM Tamsulosin HCl [Flomax] 0.4 mg PO BID Lubiprostone [Amitiza] 24 mcg PO DAILY PRN PRN Reason: Constipation Clopidogrel [Plavix] 75 mg PO DAILY #90 tab Metoprolol Tartrate [Lopressor] 25 mg PO BID #180 tab Nitroglycerin Sl Tabs [Nitrostat] 0.4 mg SUBLINGUAL Q5M PRN #25 tab PRN Reason: Chest Pain Lisinopril [Zestril] 5 mg PO DAILY Atorvastatin [Lipitor] 20 mg PO HS Discontinued Clindamycin HCl [Cleocin] 150 mg PO TID Discharge Medication List Ranitidine HCl [Zantac] 150 mg PO DAILY PRN 12/24/14 [History] Aspirin EC [Ecotrin Low Dose] 81 mg PO QAM 01/12/17 [History] Dicyclomine [Bentyl] 10 mg PO Q8H PRN 01/12/17 [History] Finasteride [Proscar] 5 mg PO DAILY 01/12/17 [History] Tamsulosin HCl [Flomax] 0.4 mg PO BID 01/12/17 [History] Lubiprostone [Amitiza] 24 mcg PO DAILY PRN 02/06/17 [History] Clopidogrel [Plavix] 75 mg PO DAILY #90 tab 02/14/17 [Rx] Metoprolol Tartrate [Lopressor] 25 mg PO BID #180 tab 02/14/17 [Rx] Nitroglycerin Sl Tabs [Nitrostat] 0.4 mg SUBLINGUAL Q5M PRN #25 tab 02/14/17 [Rx ] Atorvastatin [Lipitor] 20 mg PO HS 09/06/17 [History] Lisinopril [Zestril] 5 mg PO DAILY 09/06/17 [History] Clindamycin [Cleocin] 150 mg PO TID #21 capsule 09/07/17 [Rx] Follow up Appointment(s)/Referral(s): Deanne Leyva MD [Primary Care Provider] - 1 Week Patient Instructions/Handouts: Chest Pain (ED) Activity/Diet/Wound Care/Special Instructions: Follow up with Dr. Snell as scheduled per his appointment Follow up with Dentist [facility] Diet cardiac Activity: as tolerated Discharge Disposition: HOME SELF-CARE
== END 2017-09-07 14:40 | disposition home or self-care (01) ==
LOC: EC 10:28 → 3OBS 13:14
PROVIDERS: ADMIT Internal Medicine; ATTEND Internal Medicine
DX: R07.89 Other chest pain (principal); R68.84 Jaw pain; K08.89 Other specified disorders of teeth and supporting structures; K58.9 Irritable bowel syndrome, unspecified; K21.9 Gastro-esophageal reflux disease without esophagitis; I25.10 Atherosclerotic heart disease of native coronary artery without angina pectoris; I10 Essential (primary) hypertension; E78.5 Hyperlipidemia, unspecified; N40.0 Benign prostatic hyperplasia without lower urinary tract symptoms; K57.90 Diverticulosis of intestine, part unspecified, without perforation or abscess without bleeding; Z79.02 Long term (current) use of antithrombotics/antiplatelets; Z79.82 Long term (current) use of aspirin; Z79.899 Other long term (current) drug therapy; Z88.0 Allergy status to penicillin; Z88.5 Allergy status to narcotic agent; I25.2 Old myocardial infarction; Z95.5 Presence of coronary angioplasty implant and graft; Z82.49 Family history of ischemic heart disease and other diseases of the circulatory system
CPT/HCPCS: 99285 ×2; 96361 ×8; 96374; 36415; 93005; 83880; 80053 ×2; 82150; 82550; 82553; 83690; 83735; 84484; 85025 ×2; 85610; 85730; 71046; G0378 ×2; S0138; C9113

== ENCOUNTER → 2017-12-04 | Outpatient (CLI) | payer MEDICARE ==
[2017-12-04 10:58] LABS: Calcium 9.5 mg/dL (8.4-10.2); Potassium 4.6 mmol/L (3.5-5.1); Total Bilirubin 1.5 mg/dL (0.2-1.3); Total Protein 6.7 g/dL (6.3-8.2)
== END | disposition home or self-care (01) ==
LOC: LABWHC1 09:23
PROVIDERS: ATTEND Internal Medicine Interventional Cardiology
DX: E78.2 Mixed hyperlipidemia (principal)
CPT/HCPCS: 36415; 80053; 80061

== ENCOUNTER → 2018-06-14 | Outpatient (CLI) | payer MEDICARE ==
[2018-06-14 17:50] LABS: LDL Cholesterol,Calculated 75.4 mg/dL (0.0-131.0); VLDL Calculation 18.6 mg/dL (5.00-40.00)
== END | disposition home or self-care (01) ==
LOC: LABWHC1 07:47
PROVIDERS: ATTEND Internal Medicine Interventional Cardiology
DX: E78.2 Mixed hyperlipidemia (principal)
CPT/HCPCS: 36415; 80061; 84450; 84460

== ENCOUNTER → 2018-12-31 | Outpatient (CLI) | payer MEDICARE ==
[2018-12-31 16:15] LABS: African American GFR (CKD) 77.5 (60.0-200.0); Albumin 4.2 g/dL (3.80-4.90); Albumin/Globulin Ratio 1.83 (1.60-3.17); Calcium 9.2 mg/dL (8.7-10.3); Globulin 2.3 g/dL (1.6-3.3); LDL Cholesterol,Calculated 103.6 mg/dL (0.0-131.0); Potassium 4.6 mmol/L (3.5-5.5); Total Bilirubin 1.1 mg/dL (0.3-1.2); Total Protein 6.5 g/dL (6.2-8.2); VLDL Calculation 33.4 mg/dL (5.00-40.00)
== END | disposition home or self-care (01) ==
LOC: LABWHC1 06:59
PROVIDERS: ATTEND Internal Medicine Interventional Cardiology
DX: E78.2 Mixed hyperlipidemia (principal)
CPT/HCPCS: 36415; 80053; 80061

== ENCOUNTER → 2019-07-03 | Outpatient (CLI) | payer MEDICARE ==
[2019-07-03 11:27] LABS: Albumin 4.2 g/dL (3.80-4.90); Anion Gap 8.9 mmol/L (4.00-12.00); Calcium 9.4 mg/dL (8.7-10.3); Carbon Dioxide 25.1 mmol/L (21.6-31.8); Chol/HDL Ratio 4.07; Globulin 2.1 g/dL (1.6-3.3); LDL Cholesterol,Calculated 111.2 mg/dL (0.0-131.0); Non-African American GFR(CKD) 66.4 (60.0-200.0); Potassium 4.2 mmol/L (3.5-5.5); Total Bilirubin 1.3 mg/dL (0.2-1.2); Total Protein 6.3 g/dL (6.2-8.2); VLDL Calculation 29.8 mg/dL (5.00-40.00)
== END | disposition home or self-care (01) ==
LOC: LABWHC1 07:16
PROVIDERS: ATTEND Internal Medicine Interventional Cardiology
DX: E78.2 Mixed hyperlipidemia (principal)
CPT/HCPCS: 36415; 80053; 80061

== ENCOUNTER → 2020-01-01 | Outpatient (CLI) | payer MEDICARE ==
[2020-01-01 16:29] LABS: Chol/HDL Ratio 3.64; LDL Cholesterol,Calculated 104.2 mg/dL (0.0-131.0); VLDL Calculation 19.8 mg/dL (5.00-40.00)
== END | disposition home or self-care (01) ==
LOC: LABWHC1 07:25
PROVIDERS: ATTEND Nurse Practitioner Adult Health
DX: E78.2 Mixed hyperlipidemia (principal)
CPT/HCPCS: 36415; 80061; 84450; 84460